=== PATIENT | female | born 1985 | race Caucasian/White ===

== ENCOUNTER → 2021-10-05 | Outpatient (CLI) | payer SELFPAY ==
--- NOTE | 2021-10-05 12:28 | CT_ITS ---
INDICATION: .. EXAMINATION: CT BRAIN - TECHNIQUE: Multiple axial images were obtained of the head without intravenous contrast. A radiation dose optimization technique was used for this scan. IV Contrast dosage and agent: None. Radiation Dose (provided by facility) CTDIvol (NA ) mGy, DLP ( NA) mGy-cm COMPARISON: Not available FINDINGS: HEMISPHERES: The cerebral parenchyma, ventricular system, subarachnoid spaces have normal configuration and density. There is a normal gyral pattern. There is normal redd. The hemispheric white matter has normal appearance. No intraparenchymal mass, hemorrhage, or acute territorial infarct. CEREBELLUM - BRAINSTEM: The cerebellum, brainstem, basilar and suprasellar cisterns have normal appearance. No Chiari malformation. PITUITARY: Infundibulum and pituitary have normal configuration. Midline structures appear normal. VESSELS: No significant vascular calcifications in the cavernous carotid vessels. No hyperdense vascular signs noted.. ORBITS AND PARANASAL SINUSES: Normal appearance of the bony orbits. Normal appearance of the globes and retrobulbar soft tissues Paranasal sinuses are clear. BONY ELEMENTS: Bony elements of the cranial vault, facial skeleton and skull base have normal appearance. SCALP AND SOFT TISSUES: Normal appearance of the soft tissues of the scalp and the visualized face OTHER: None CT/STROKE Brain/Head without Cont IMPRESSION: Age-appropriate CT examination of the head. No intracranial mass, hemorrhage or acute territorial infarct. [No radiographically significant sinus disease.] Urgent Finding: Stroke case Report Digitally Signed by Mikie Currie on 10/05/2021 12:38 PM EDT Electronically Signed: Mikie Currie MD at 12:38 EDT ,
== END | disposition home or self-care (01) ==
LOC: RAD 11:17
PROVIDERS: PCP Radiology Diagnostic Radiology; Referring Provider Radiology Diagnostic Radiology; Visit Provider Radiology Diagnostic Radiology
DX: Z86.73 Personal history of transient ischemic attack (TIA), and cerebral infarction without residual deficits (principal)
CPT/HCPCS: 70450